=== PATIENT | male | born 1975 | race Two or more races ===

== ENCOUNTER → 2016-12-14 | Outpatient (CLI) | payer OTHER ==
[2016-12-15 17:26] LABS: ACROSOM DEFECT 8.5 % (()); DOUBLE FORM 1.5 % (()); GRADE 2.5 (>=2.5); MIDPIECE ABNORMAL 21.5 % (()); MOTILITY 44 % (>=40); SEMEN CONTAINER TYPE 50 mL Conical (()); STUDY TYPE Semen (()); TAIL ABNORMAL 30.5 % (())
== END ==
LOC: CLAB 10:40
DX: N46.9 Male infertility, unspecified (principal)
CPT/HCPCS: 89310